=== PATIENT | female | born 1955 ===

== ENCOUNTER 2022-02-02 06:26 | Day surgery (SDC) | payer OTHER | END 2022-02-02 10:50 | disposition home or self-care (01) | LOC: AMB-ENDOS 06:26 | PROVIDERS: ATTEND Colon & Rectal Surgery | DX: D12.3 Benign neoplasm of transverse colon (principal); K57.30 Diverticulosis of large intestine without perforation or abscess without bleeding; I10 Essential (primary) hypertension; Z86.010 Personal history of colon polyps ==

== ENCOUNTER 2022-04-06 09:45 | Inpatient (IN) | payer OTHER ==
[~2022-04-06] VITALS: Ht 165.1 cm; Wt 82.6 kg
[2022-04-06] MEDS ORDERED: COZAAR50 MG PO (11:43)
[2022-04-09] MEDS ORDERED: SIMVASTATIN20 MG (14:43)
[2022-04-09] MEDS ORDERED: CYANOCOBAL1000 MCG/1 (14:43)
[2022-04-09] MEDS ORDERED: ST. JOSEPH ASPI81 M2 (14:43)
[2022-04-09] MEDS ORDERED: FLONASE16 GM (14:43)
[2022-04-09] MEDS ORDERED: LEVOCETIRIZINE D5 MG (14:43)
== END 2022-04-11 18:57 | disposition home or self-care (01) | DRG 331 ==
LOC: SURH 04-09 06:50 → O/R 04-09 06:50 → SURH 04-09 07:00
PROVIDERS: ADMIT Colon & Rectal Surgery; ATTEND Colon & Rectal Surgery
PROC: 0DBP4ZZ Excision of Rectum, Percutaneous Endoscopic Approach (ICD-10-PCS; 2022-04-09)
PROC: 0DJD8ZZ Inspection of Lower Intestinal Tract, Via Natural or Artificial Opening Endoscopic (ICD-10-PCS; 2022-04-09)
PROC: 4A1BXSH Monitoring of Gastrointestinal Vascular Perfusion using Indocyanine Green Dye, External Approach (ICD-10-PCS; 2022-04-09)
PROC: 0DTN4ZZ Resection of Sigmoid Colon, Percutaneous Endoscopic Approach (ICD-10-PCS; principal; 2022-04-09 07:00)
DX: K57.20 Diverticulitis of large intestine with perforation and abscess without bleeding (principal); R10.32 Left lower quadrant pain; Z20.822 Contact with and (suspected) exposure to COVID-19; I10 Essential (primary) hypertension

== ENCOUNTER 2024-11-23 05:35 | Day surgery (SDC) | payer OTHER ==
[~2024-11-23 05:35] MED LIST: COZAAR50 MG PO; CYANOCOBAL1000 MCG/1; FLONASE16 GM; LEVOCETIRIZINE D5 MG; SIMVASTATIN20 MG; ST. JOSEPH ASPI81 M2
[2024-11-23] MEDS ORDERED: DIPHENHYDRAMINE HCL 50 MG/ML VIAL 1ML IV ONE (08:30)
[2024-11-23] MEDS ORDERED: fentaNYL CITRATE 50 MCG/ML AMPUL IV PUSH ONE (08:30)
[2024-11-23] MEDS ORDERED: ONDANSETRON HCL 2 MG/ML VIAL IV ONE (08:30)
[2024-11-23] MEDS ORDERED: MIDAZOLAM HCL 2 MG/2 ML VIAL IV ONE (08:30)
== END 2024-11-23 09:45 | disposition home or self-care (01) ==
LOC: AMB-ENDOS 05:35
PROVIDERS: ATTEND Colon & Rectal Surgery
DX: K63.5 Polyp of colon (principal); K57.30 Diverticulosis of large intestine without perforation or abscess without bleeding; K62.5 Hemorrhage of anus and rectum